=== PATIENT | female | born 1980 | race Asian ===

== ENCOUNTER → 2019-06-26 | Outpatient (CLI) | payer OTHER ==
[~2019-06-26] MED LIST: AMLO10TA8 PO; CHOL10003 PO; GABA600T PO; LOSA1TAB22 PO; METH750T2 PO
[2019-06-26 11:36] VITALS: BP 117/71
== END | disposition home or self-care (01) ==
LOC: SURG 11:22
PROVIDERS: ATTEND Anesthesiology
DX: M47.26 Other spondylosis with radiculopathy, lumbar region (principal); M79.605 Pain in left leg
CPT/HCPCS: 99204

== ENCOUNTER → 2019-11-16 | Outpatient (CLI) | payer OTHER ==
[~2019-11-16] MED LIST changes: +0.9 % SODIUM CHLORIDE 10 ML VIAL ONE; +IOHEXOL 300 MG/ML 50 ML VIAL. ONE; +LIDOCAINE 1% PF 30 ML VIAL. ONE; +methylPREDNISolone ACETATE 80 MG/ML VIAL. ONE
[2019-11-16 15:46] VITALS: BP 121/75
== END ==
LOC: SURG 14:50
PROVIDERS: ATTEND Anesthesiology Pain Medicine
DX: M54.16 Radiculopathy, lumbar region (principal); M54.5 Low back pain
CPT/HCPCS: 62323; J1040; J2001; Q9967